=== PATIENT | female | born 1985 | race Caucasian/White ===

== ENCOUNTER 2022-11-27 22:28 | Inpatient (IN) | payer OTHER, SELFPAY ==
--- NOTE | ~2022-11-27 | CT_ITS ---
EXAMINATION: CT HEAD WITHOUT CONTRAST CT ANGIOGRAM HEAD CT ANGIOGRAM NECK CLINICAL INFORMATION: Left arm weakness. History of antiphospholipid syndrome. COMPARISON: None available. TECHNIQUE: Initial noncontrast health and safety tech imaging of the head and neck was performed. Noncontrast head CT was also performed. Test bolus sequences followed by intravenous administration 70 mL of Omnipaque 350. Helical imaging was performed in the axial plane from the aortic arch to the skull vertex. Delayed postcontrast imaging of the head was also performed. The data was processed at the product/device technologist's workstation for generation of MIP sequences. Angled MIPs and volume rendered reformatted images were also generated at an offline 3D workstation. Stenoses are assessed in accordance with NASCET criteria unless otherwise indicated. This CT examination was performed using dose optimization techniques as appropriate, variously including the following: *Automated exposure control. *Adjustment of mA and/or kV according to patient size (this includes techniques or standardized protocols for targeted exams where dose is matched to indication/reason for exam; i.e. extremities or head). *Use of iterative reconstruction technique. DLP: 1970 mGy-cm FINDINGS: CT Head: There is a region of chronic encephalomalacia involving the left insula with associated volume loss. Additional multifocal infarcts scattered throughout the bilateral frontoparietal lobes (including the right precentral gyrus) appear age indeterminant. Lacunar infarct of the left cerebellar hemisphere. There is no evidence of acute intracranial hemorrhage. A few foci of hypoattenuation in the periventricular and deep white matter. Proportional prominence of the ventricles and sulcal spaces. No evidence for obstructive hydrocephalus. No abnormal mass effect or midline shift. No extra-axial fluid collections. No pathologic intra-axial enhancement. No acute soft tissue or osseous abnormalities. Mild mucosal thickening of the paranasal sinuses. Mild rightward nasal septal deviation with spurring. The mastoid air cells and middle ear cavities are clear. CT Neck: The thyroid gland and remaining cervical soft tissues are within normal limits. No significant abnormalities of the cervical spine. CT Upper Chest: The visualized lung apices and upper mediastinum are within normal limits. Neck CTA: Aortic Arch: Normal contour and caliber. Classic 3 vessel branching pattern of the aortic arch. Great Vessel Origins: No significant stenosis of the branch origins. Right Common Carotid Artery: No focal stenosis or occlusion. Cervical Right Internal Carotid Artery: Normal opacification without focal stenosis or occlusion. Left Common Carotid Artery: No focal stenosis or occlusion. Cervical Left Internal Carotid Artery: Normal opacification without focal stenosis or occlusion. Cervical Right Vertebral Artery: Co-dominant. No focal stenosis or occlusion. Cervical Left Vertebral Artery: Co-dominant. No focal stenosis or occlusion. Brain CTA: Intracranial Internal Carotid Arteries: No focal stenosis or occlusion. Right Anterior Cerebral Artery: Normal A1 segment. Normal opacification of the distal MONICA segments. Left Anterior Cerebral Artery: Normal A1 segment. Normal opacification of the distal MONICA segments. Anterior Communicating Artery: Normal. Right Middle Cerebral Artery: Normal M1 segment of the MCA without focal stenosis or occlusion. Normal arborization of the distal segments. Left Middle Cerebral Artery: Normal M1 segment of the MCA without focal stenosis or occlusion. Normal arborization of the distal segments. Right Vertebral Artery: Normal V4 segment. Normal opacification of the proximal segments of the posterior inferior cerebellar artery. Left Vertebral Artery: Normal V4 segment. Normal opacification of the proximal segments of the posterior inferior cerebellar artery. Basilar Artery: Normal without focal stenosis or occlusion. Normal appearance of the proximal superior cerebellar arteries. Right Posterior Cerebral Artery: Normal P1 segment. Normal opacification of the distal [employer] segments. Left Posterior Cerebral Artery: Normal P1 segment. Normal opacification of the distal [employer] segments. Normal opacification of the superior sagittal, straight, transverse, and sigmoid sinuses. CT/CT head for stroke IMPRESSION: 1. Multifocal age-indeterminate infarcts scattered throughout the bilateral frontoparietal lobes. While some of these infarcts are likely chronic in nature, it be difficult to exclude acute/subacute on chronic insults. 2. There is also a region of chronic encephalomalacia involving the left insula. Lacunar infarcts of the cerebellar hemispheres. Mild underlying white matter changes. 3. No evidence of acute intracranial hemorrhage. 4. CTA of the head and neck without proximal occlusion or flow-limiting stenosis. This critical result was discussed with JERMAINE Milton at 23:09 on 11/27/2022 and it was ascertained that the content and urgency of the report was understood at the time of direct communication.
--- NOTE | ~2022-11-27 | CT_ITS ---
EXAMINATION: CT HEAD WITHOUT CONTRAST CT ANGIOGRAM HEAD CT ANGIOGRAM NECK CLINICAL INFORMATION: Left arm weakness. History of antiphospholipid syndrome. COMPARISON: None available. TECHNIQUE: Initial noncontrast tractor technician imaging of the head and neck was performed. Noncontrast head CT was also performed. Test bolus sequences followed by intravenous administration 70 mL of Omnipaque 350. Helical imaging was performed in the axial plane from the aortic arch to the skull vertex. Delayed postcontrast imaging of the head was also performed. The data was processed at the development technologist's workstation for generation of MIP sequences. Angled MIPs and volume rendered reformatted images were also generated at an offline 3D workstation. Stenoses are assessed in accordance with NASCET criteria unless otherwise indicated. This CT examination was performed using dose optimization techniques as appropriate, variously including the following: *Automated exposure control. *Adjustment of mA and/or kV according to patient size (this includes techniques or standardized protocols for targeted exams where dose is matched to indication/reason for exam; i.e. extremities or head). *Use of iterative reconstruction technique. DLP: 1970 mGy-cm FINDINGS: CT Head: There is a region of chronic encephalomalacia involving the left insula with associated volume loss. Additional multifocal infarcts scattered throughout the bilateral frontoparietal lobes (including the right precentral gyrus) appear age indeterminant. Lacunar infarct of the left cerebellar hemisphere. There is no evidence of acute intracranial hemorrhage. A few foci of hypoattenuation in the periventricular and deep white matter. Proportional prominence of the ventricles and sulcal spaces. No evidence for obstructive hydrocephalus. No abnormal mass effect or midline shift. No extra-axial fluid collections. No pathologic intra-axial enhancement. No acute soft tissue or osseous abnormalities. Mild mucosal thickening of the paranasal sinuses. Mild rightward nasal septal deviation with spurring. The mastoid air cells and middle ear cavities are clear. CT Neck: The thyroid gland and remaining cervical soft tissues are within normal limits. No significant abnormalities of the cervical spine. CT Upper Chest: The visualized lung apices and upper mediastinum are within normal limits. Neck CTA: Aortic Arch: Normal contour and caliber. Classic 3 vessel branching pattern of the aortic arch. Great Vessel Origins: No significant stenosis of the branch origins. Right Common Carotid Artery: No focal stenosis or occlusion. Cervical Right Internal Carotid Artery: Normal opacification without focal stenosis or occlusion. Left Common Carotid Artery: No focal stenosis or occlusion. Cervical Left Internal Carotid Artery: Normal opacification without focal stenosis or occlusion. Cervical Right Vertebral Artery: Co-dominant. No focal stenosis or occlusion. Cervical Left Vertebral Artery: Co-dominant. No focal stenosis or occlusion. Brain CTA: Intracranial Internal Carotid Arteries: No focal stenosis or occlusion. Right Anterior Cerebral Artery: Normal A1 segment. Normal opacification of the distal MONICA segments. Left Anterior Cerebral Artery: Normal A1 segment. Normal opacification of the distal MONICA segments. Anterior Communicating Artery: Normal. Right Middle Cerebral Artery: Normal M1 segment of the MCA without focal stenosis or occlusion. Normal arborization of the distal segments. Left Middle Cerebral Artery: Normal M1 segment of the MCA without focal stenosis or occlusion. Normal arborization of the distal segments. Right Vertebral Artery: Normal V4 segment. Normal opacification of the proximal segments of the posterior inferior cerebellar artery. Left Vertebral Artery: Normal V4 segment. Normal opacification of the proximal segments of the posterior inferior cerebellar artery. Basilar Artery: Normal without focal stenosis or occlusion. Normal appearance of the proximal superior cerebellar arteries. Right Posterior Cerebral Artery: Normal P1 segment. Normal opacification of the distal BREWMASTER segments. Left Posterior Cerebral Artery: Normal P1 segment. Normal opacification of the distal BREWMASTER segments. Normal opacification of the superior sagittal, straight, transverse, and sigmoid sinuses. CT/CT angio head neck stroke IMPRESSION: 1. Multifocal age-indeterminate infarcts scattered throughout the bilateral frontoparietal lobes. While some of these infarcts are likely chronic in nature, it be difficult to exclude acute/subacute on chronic insults. 2. There is also a region of chronic encephalomalacia involving the left insula. Lacunar infarcts of the cerebellar hemispheres. Mild underlying white matter changes. 3. No evidence of acute intracranial hemorrhage. 4. CTA of the head and neck without proximal occlusion or flow-limiting stenosis. This critical result was discussed with JERMAINE Milton at 23:09 on 11/27/2022 and it was ascertained that the content and urgency of the report was understood at the time of direct communication.
--- NOTE | ~2022-11-27 | MR_ITS ---
EXAMINATION: BRAIN MRI WITHOUT CONTRAST CLINICAL INFORMATION: Cerebrovascular accident. COMPARISON: CT angiogram of the head and neck 11/27/2022. TECHNIQUE: Multiplanar MR imaging of the brain was performed without contrast. FINDINGS: There is a tiny focus of restricted diffusion involving the cortical chacon matter of the right precentral gyrus in the hand motor association area. This finding is superimposed upon numerous chronic cortical infarcts involving both cerebral hemispheres and the cerebellum. There is a punctate chronic microhemorrhages visible within the subcortical white matter of the right frontal lobe. Intracranial vascular flow voids are grossly maintained. There is no intracranial mass effect or midline shift. Lateral and third ventricles are proportionate to the subarachnoid spaces. No hydrocephalus. Midline structures including the cervicomedullary junction are normal. No acute bone marrow signal changes. There is no mastoid or middle ear effusion. Mild paranasal sinus disease primarily affecting the ethmoid air cells. Globes and orbits are symmetric. MR/MR head/brain wo con IMPRESSION: There is a tiny acute cortical infarct involving the right precentral gyrus in the hand motor association area. This finding is superimposed upon numerous chronic cortical infarcts involving both cerebral hemispheres and the cerebellum.
[2022-11-27 22:29] VITALS: BP 171/97; PULSE 92; RESP 18; TEMP 36.8; O2SAT 99; BMI 31.7
--- NOTE | 2022-11-27 22:35 | ECG_ITS ---
Test Reason : STROKE Blood Pressure : / mmHG Vent. Rate : 087 BPM Atrial Rate : 087 BPM P-R Int : 144 ms QRS Dur : 082 ms QT Int : 368 ms P-R-T Axes : 041 019 -41 degrees QTc Int : 442 ms Normal sinus rhythm Nonspecific T wave abnormality Abnormal ECG No previous ECGs available Referred By: Josafat Florez Electronically Signed By:Yvan Lees
--- NOTE | 2022-11-27 22:44 | ED.NEUROSD ---
HPI - Neuro Symptoms/Deficit General Chief Complaint: Stroke Stated Complaint: stroke? Time Seen by Provider: 11/27/22 22:35 Source: patient and family Mode of arrival: ambulatory Limitations: no limitations History of Present Illness HPI Narrative: This is a 37-year-old female history of CKD, hyperlipidemia, antiphospholipid syndrome, history of stroke on Lovenox, hypertension presenting to the emergency department with complaints of weakness to left upper extremity and decreased sensation, symptoms started at 21:40 when patient got out of the shower and was trying to dry herself she noted she was having difficulty lifting her left arm she was not able to wrap her left arm around her to dry herself. Patient tells me she got nervous as she has a history of stroke. She tells me symptoms are still present however slightly improving. Patient has been med compliant. No concerns for . Patient denies chest pain, shortness of breath, nausea, vomiting, headache, vision changes, dizziness , changes in voice, trouble with word finding, facial asymmetry. NIHSS- 2 Related Data Allergies Allergy/AdvReac Type Severity Reaction Status Date / Time No Known Allergies Allergy Unverified 06/02/20 17:24 [No Known Allergies*] Review of Systems Review of Systems: Constitutional : No Weight loss, No Fever, No Chills, No Fatigue, No Malaise ENT/Mouth : No sore throat, No Rhinorrhea Eyes: No Eye Pain, No Swelling, No Redness Cardiovascular : No Chest Pain, No SOB, No Dyspnea on Exertion, No Orthopnea, No Edema, No Palpitations Respiratory : No Cough, No Sputum, No Wheezing Gastrointestinal : No Nausea, No Vomiting, No Diarrhea, No Constipation, No abdominal Pain, No Hematochezia, No Melena Genitourinary : No Dysuria, No Urinary Frequency, No Hematuria, Musculoskeletal : No joint pain, No Myalgias, No Joint Swelling Skin : No Skin Lesions, No rash Neuro : + Weakness, No Numbness, No Dizziness, No Headache Psych : No Anxiety/Panic, No Depression All other systems reviewed and are negative Yes all other systems are reviewed and are negative [facility] Past Medical History Attestation statement: The following information was validated with the patient. Source: old records reviewed and nursing notes reviewed Physical Exam Vital Signs: Vital Signs: Last Vital Signs Temp 98.3 F 11/27/22 22:29 Pulse 92 11/27/22 22:29 Resp 18 11/27/22 22:29 BP 171/97 H 11/27/22 22:29 Pulse Ox 99 11/27/22 22:29 O2 Del Method 11/27/22 22:29 BMI result Body Mass Index 31.7 vss Appearance: Alert.? Oriented X3.? No acute distress.? Head: Normocephalic, atraumatic, no step-offs or deformities. Normal symmetry to face Eyes: Pupils equal, round and reactive to light.? Extraocular movements intact. CVS: Normal heart rate and rhythm.? Pulses normal.? Respiratory: No respiratory distress.? Breath sounds normal.? Abdomen: Soft and nontender.? Skin: Skin warm and dry.? Normal skin color.? Normal skin turgor.? Extremities: No lower extremity edema.? No calf ttp. 5/5 strength to bilateral lower extremities. 5/5 strength to right upper extremity and 4/5 strength to left upper extremity with slight drift. Decreased sensation to left upper extremity. Normal sensation to right upper extremity. Back: No midline tenderness, no C-spine tenderness, full range of motion, no CVA tenderness bilaterally Neuro: Oriented X 3.? No motor deficit.? No sensory deficit. CN 2-12 intact . Normal rrtbud-of-owpc, ambulating with steady tandem gait normal coordination. Normal rapid alternating movements. Course Reevaluation(s) Reevaluation #1: I did speak to Neurology who recommends MRI. Nothing to be done acutely about this, patient is not a tPA candidate she is anticoagulated on Lovenox. CBC unremarkable. Chemistry with JOSSY, will hydrate. Patient's coags within normal limits. PTT 71.6. Time: 23:19 Reevaluation #2: CT and CTA discussed with Neurology, multifocal H determinant infarcts scattered throughout the bilateral frontal parietal lobe. Some infarcts are likely chronic however hard to exclude acute/subacute insults. Region of chronic encephalomalacia. Lacunar infarcts within cerebellar hemispheres. No evidence of acute intracranial hemorrhage. CT of the head and neck without proximal occlusion or flow-limiting stenosis. Discussed case with hospitalist who will admit patient for further evaluation and treatment. Time: 23:38 Medications Administered Discontinued Medications Generic Name Dose Route Start Last Admin Trade Name Freq PRN Reason Stop Dose Admin Iohexol 100 ml 11/27/22 22:57 11/27/22 22:57 Iohexol 350 Mg/Ml 100 Ml Infus..Btl IV 11/27/22 22:58 70 ml ONCE ONE Administration Medical Decision Making Medical Decision Making [facility] Narrative: 37-year-old female presents for evaluation of left arm weakness and decreased sensation to left arm since 21:40. History of CVA anticoagulated on Lovenox. Followed by [facility]. Physical exam significant for 5/5 strength to bilateral lower extremities. 5/5 strength to right upper extremity and 4/5 strength to left upper extremity with slight drift. Decreased sensation to left upper extremity. Normal sensation to right upper extremity. Facial symmetry noted. Regular rate and rhythm. Lungs clear. Abdomen soft nontender nondistended. NIHSS- 2 Concerns for possible stroke, TIA. Will rule out intracranial hemorrhage. Unlikely posterior stroke. Cerebellar function intact. Will rule out electrolyte abnormalities. Plan at this time stroke protocol. Differential Diagnosis Differential Diagnoses: The differential diagnosis associated with the presentation includes Concerns for possible stroke, TIA. Will rule out intracranial hemorrhage. Unlikely posterior stroke. Cerebellar function intact. Will rule out electrolyte abnormalities. Admission/Observation Consideration of admission/observation: Escalation of care including admission/observation considered Consult Healthcare Provider Management of the patient was discussed with: Hospitalist and Marketing Analytics Specialist (Dr. Thomas ) Lab Data [facility] Lab Attestation statement: I reviewed the patient's lab results. 11/27/22 22:49 11/27/22 22:49 Labs: Lab Results 11/27/22 11/27/22 11/27/22 Range/Units 22:42 22:43 22:49 WBC 8.6 (4.8-10.8) X10*3/uL RBC 4.63 (4.20-5.50) X10*6/uL Hgb 13.4 (12.0-16.0) g/dl Hct 39.4 (37.0-47.0) % MCV 85.1 (80.0-98.0) fL MCH 28.9 (27.0-33.0) pg MCHC 34.0 (31.0-35.0) g/dl RDW 12.0 (11.0-16.0) % Plt Count 298 (160-400) X10*3/uL MPV 10.7 (9.4-12.3) fL Immature Gran % (Auto) 0.2 (0.0-0.4) % Neut % (Auto) 44.5 L (45-73) % Lymph % (Auto) 44.1 H (20-40) % [place] % (Auto) 8.6 (2-11) % Eos % (Auto) 1.9 (0-4) % Baso % (Auto) 0.7 (0-2) % Lymph # (Auto) 3.8 (1.2-4.9) X10*3/uL [place] # (Auto) 0.7 (0.1-1.2) X10*3/uL Eos # (Auto) 0.2 (0.0-0.4) X10*3/uL Baso # (Auto) 0.1 (0.0-0.2) X10*3/uL Abs Immat Gran (auto) 0.02 (0.00-0.03) X10*3/uL Absolute Neuts (auto) 3.8 (2.0-8.3) x10*3/uL Absolute Nucleated RBC 0.000 (0.0-0.012) X10*3/uL Nucleated RBC % (auto) 0.0 (0.0-0.2) /100WBC PT (10.0-13.1) SEC Whole Blood PT 12.1 (11.1-13.5) sec INR (0.9-1.1) Whole Blood INR 1.0 (0.9-1.1) APTT (26.0-36.4) SEC Sodium (135-145) mmol/L Potassium (3.3-5.1) mmol/L Chloride (96-108) mmol/L Carbon Dioxide (22-29) mmol/L Anion Gap (12-20) BUN (9-16) mg/dL Creatinine (0.5-1.4) mg/dL Estim Creat Clear Calc Estimated GFR POC Glucose 136 H (60-115) mg/dL Random Glucose (60-115) mg/dL Calcium (8.4-10.2) mg/dL Total Creatine Kinase (26-140) U/L Troponin I High Sens (<3.5-17.0) ng/L 11/27/22 11/27/22 11/27/22 Range/Units 22:49 22:49 22:49 WBC (4.8-10.8) X10*3/uL RBC (4.20-5.50) X10*6/uL Hgb (12.0-16.0) g/dl Hct (37.0-47.0) % MCV (80.0-98.0) fL MCH (27.0-33.0) pg MCHC (31.0-35.0) g/dl RDW (11.0-16.0) % Plt Count (160-400) X10*3/uL MPV (9.4-12.3) fL Immature Gran % (Auto) (0.0-0.4) % Neut % (Auto) (45-73) % Lymph % (Auto) (20-40) % [place] % (Auto) (2-11) % Eos % (Auto) (0-4) % Baso % (Auto) (0-2) % Lymph # (Auto) (1.2-4.9) X10*3/uL [place] # (Auto) (0.1-1.2) X10*3/uL Eos # (Auto) (0.0-0.4) X10*3/uL Baso # (Auto) (0.0-0.2) X10*3/uL Abs Immat Gran (auto) (0.00-0.03) X10*3/uL Absolute Neuts (auto) (2.0-8.3) x10*3/uL Absolute Nucleated RBC (0.0-0.012) X10*3/uL Nucleated RBC % (auto) (0.0-0.2) /100WBC PT 10.6 (10.0-13.1) SEC Whole Blood PT (11.1-13.5) sec INR 0.9 (0.9-1.1) Whole Blood INR (0.9-1.1) APTT 71.6 H* (26.0-36.4) SEC Sodium 141 (135-145) mmol/L Potassium 3.7 (3.3-5.1) mmol/L Chloride 104 (96-108) mmol/L Carbon Dioxide 26 (22-29) mmol/L Anion Gap 15 (12-20) BUN 19 H (9-16) mg/dL Creatinine 1.50 H (0.5-1.4) mg/dL Estim Creat Clear Calc 54.3 Estimated GFR 39 POC Glucose (60-115) mg/dL Random Glucose 111 (60-115) mg/dL Calcium 9.7 (8.4-10.2) mg/dL Total Creatine Kinase 38 (26-140) U/L Troponin I High Sens < 3.5 (<3.5-17.0) ng/L Independent Interpretation I performed an independent interpretation of an: EKG (Ventricular rate of 87, WA normal, QRS normal, QT/QTC normal. EKG with normal sinus rhythm no ST elevations or inversions concerning for ischemia.) and CT Scan Radiology Impression Discussion of test interpretation with radiology: I have reviewed the radiologist's reading. Core Measures AMI core measures followed: Yes Measure exclusions: not indicated Critical Care Time Critical Care Time Critical Care Time: Yes Total Critical Care Time: 40 Attestation: I attest to this time spent taking care of the patient, obtaining history, physical, reviewing labs, imaging, speaking to my attending, speaking to specialist. Discharge Plan Discharge Clinical Impression: Cerebrovascular accident Patient Disposition: Admitted As Inpatient
[2022-11-27 22:47] LABS: Glucose, Whole Blood 136 mg/dL (60-115)
[2022-11-27 22:49] LABS: Prothrombin Time Whole Bld POC 12.1 sec (11.1-13.5)
[2022-11-27 22:55] LABS: MANUAL DIFF FLAG NO
[2022-11-27 22:56] LABS: Basophils Absolute Auto 0.1 X10*3/uL (0.0-0.2); Basophils Percent Auto 0.7 % (0-2); Eosinophils Absolute Auto 0.2 X10*3/uL (0.0-0.4); Eosinophils Percent Auto 1.9 % (0-4); Hematocrit 39.4 % (37.0-47.0); Hemoglobin 13.4 g/dl (12.0-16.0); Imm Gran Abs Auto 0.02 X10*3/uL (0.00-0.03); Imm Gran Pct Auto 0.2 % (0.0-0.4); Lymphocytes Absolute Auto 3.8 X10*3/uL (1.2-4.9); Lymphocytes Percent Auto 44.1 % (20-40); Mean Corpuscular Hemoglobin 28.9 pg (27.0-33.0); Mean Corpuscular Volume 85.1 fL (80.0-98.0); Mean Platelet Volume 10.7 fL (9.4-12.3); Monocytes Absolute Auto 0.7 X10*3/uL (0.1-1.2); Monocytes Percent Auto 8.6 % (2-11); Neutrophils Absolute Auto 3.8 x10*3/uL (2.0-8.3); Neutrophils Percent Auto 44.5 % (45-73); Platelet Count 298 X10*3/uL (160-400); Red Blood Count 4.63 X10*6/uL (4.20-5.50); White Blood Count 8.6 X10*3/uL (4.8-10.8)
[2022-11-27] MEDS: iohexoL 350 MG/ML 100 ML INFUS..BTL IV (22:57)
[2022-11-27 23:01] LABS: INTERNATIONAL NORM RATIO 0.9 (0.9-1.1); Prothrombin Time 10.6 SEC (10.0-13.1)
[2022-11-27 23:06] LABS: Partial Thromboplastin Time 71.6 SEC (26.0-36.4)
[2022-11-27 23:07] LABS: Stroke Lab Use COMPLETE
--- NOTE | 2022-11-27 23:09 | PC.NURSE ---
pt arrives to ED reports possible stroke (hx of stroke last May). 18g IV placed in RAC, labs drawn as well. pt back from CT, Ekg being performed at this time
[2022-11-27 23:12] LABS: Anion Gap 15 (12-20); Blood Urea Nitrogen 19 mg/dL (9-16); Calcium 9.7 mg/dL (8.4-10.2); Carbon Dioxide 26 mmol/L (22-29); Chloride 104 mmol/L (96-108); Creatinine Clr Calc Pharmacy 54.3; Estimated Glomerular Filt Rate 39; Glucose Random 111 mg/dL (60-115); Potassium 3.7 mmol/L (3.3-5.1); Sodium 141 mmol/L (135-145)
[2022-11-27 23:19] LABS: Troponin-I High Sensitivity < 3.5 ng/L (<3.5-17.0)
--- NOTE | 2022-11-27 23:36 | P.HPHOSP_ITS ---
History of Present Illness Date of Service: 11/27/22 Chief Complaint: Left upper extremity weakness This is a 37-year-old female with pertinent history of essential hypertension, mood disorder, history of CVA, CKD, antiphospholipid syndrome presents to the emergency department for evaluation of left upper extremity weakness. Patient is on therapeutic Lovenox for antiphospholipid syndrome. She last had an acute CVA in May 2022. Patient had residual extremity weakness, abnormal gait and some cognitive deficits due to her previous CVA. Patient states her extremity weakness was improving with occupational therapy. Around 21:30 when patient got out of the shower she noticed sudden onset of left upper extremity weakness. Patient was unable to lift her left arm and unable to make a fist. She was not able to lift her towel to dry herself. Patient is compliant with her medications. She had a DAVID in October including bubble study. She denies speech deficits, facial droop, tongue bite, urinary or bowel incontinence, fever, chills, chest discomfort, palpitations, shortness of breath, abdominal pain, changes in urinary or bowel habits In the emergency department, Neurology was consulted who requested admission and MRI in a.m. Review of Systems Constitutional: Constitutional: Reports no additional constitutional complaints Cardiovascular: Cardiovascular: Reports no additional cardiovascular complaints Respiratory: Respiratory: Reports no additional respiratory complaints Gastrointestinal: Gastrointestinal: Reports no additional gastrointestinal complaints Genitourinary: Genitourinary: Reports no additional female genitourinary complaints Neurologic: Reports focal weakness [facility] Medical History Antiphospholipid antibody syndrome Cerebrovascular accident CKD (chronic kidney disease) Hypertension Functional capacity: independent ambulation Pertinent family history: No family history of CAD Social History Alcohol intake: never Patient Tobacco Use Status: Never used Tobacco Smoked in Last 30 Days: No Use of substances other than those prescribed or required for medical reasons: No Advance Directives: No Advance Directives Information Provided: No Nutrition Risks: No Nutritional Risk Patient : No Meds Allergies Allergy/AdvReac Type Severity Reaction Status Date / Time No Known Allergies Allergy Unverified 11/27/22 23:49 [No Known Allergies*] Active Medications: Current Medications Acetaminophen (Acetaminophen 325 Mg Tablet) 650 mg PO Q6H PRN PRN Reason: Pain, Mild (Pain Scale 1-3) Acetaminophen (Acetaminophen Supp 650 Mg Supp.Rect) 650 mg CO Q6H PRN PRN Reason: Pain, Mild (Pain Scale 1-3) Sodium Chloride (Ns) 1,000 mls @ 999 mls/hr IV .Q1H1M [facility] Stop: 11/28/22 00:30 Sodium Chloride (Ns) 1,000 mls @ 999 mls/hr IV .Q1H1M [facility] Stop: 11/28/22 00:30 Melatonin (Melatonin 3 Mg Tablet) 6 mg PO BEDTIME PRN PRN Reason: Insomnia Ondansetron HCl (Ondansetron Hcl 4 Mg/2 Ml Vial) 4 mg IVPUSH Q8H PRN PRN Reason: Nausea and Vomiting Pharmacy Consult (Consult Rx Perform Med Rec) 1 each MISCELLANE ONCE PRN PRN Reason: Consult order Home Medications Medication Instructions Recorded Confirmed Last Taken Type amlodipine 10 mg tablet 1 tab PO DAILY 11/27/22 11/27/22 11/27/22 History aspirin 81 mg tablet,delayed 1 tab PO DAILY 11/27/22 11/27/22 11/27/22 History release atorvastatin 20 mg tablet 1 tab PO QPM 11/27/22 11/27/22 11/27/22 History bupropion HCl 150 mg 24 hr tablet, 1 tab PO DAILY 11/27/22 11/27/22 11/27/22 History extended release enoxaparin 120 mg/0.8 mL 1 syringe subcut DAILY 11/27/22 11/27/22 11/27/22 History subcutaneous syringe metoprolol succinate 100 mg 1 tab PO DAILY 11/27/22 11/27/22 11/27/22 History tablet,extended release 24 hr potassium citrate 10 mEq (1,080 20 meq PO DAILY 11/27/22 11/27/22 11/27/22 History mg) tablet,extended release Physical Exam Vital Signs and Narrative: Vital Signs: Last Vital Signs Temp 98.3 F 11/27/22 22:29 Pulse 92 11/27/22 22:29 Resp 18 11/27/22 22:29 BP 171/97 H 11/27/22 22:29 Pulse Ox 99 11/27/22 22:29 O2 Del Method 11/27/22 22:29 BMI result Body Mass Index 31.7 Middle-aged female lying in bed in no distress Neck supple, no JVD Regular rate and rhythm, S1-S2 heard Regular breath sounds bilaterally, no wheezing or crackles appreciated Abdomen soft nontender, no guarding, no rigidity Patient is awake, alert and oriented to self, place, time and person ; no facial droop, no tongue or uvula deviation, strength 5/5 in bilateral lower extremity and right upper extremity, 4/5 in left upper extremity, no nystagmus, Psych: Normal mood No pedal edema Results Labs 11/27/22 22:49 11/27/22 22:49 Labs: Laboratory Results - last 24 hr 11/27/22 11/27/22 11/27/22 22:42 22:43 22:49 MCV 85.1 MCH 28.9 MCHC 34.0 RDW 12.0 Plt Count 298 MPV 10.7 Immature Gran % (Auto) 0.2 Neut % (Auto) 44.5 L Lymph % (Auto) 44.1 H [place] % (Auto) 8.6 Eos % (Auto) 1.9 Baso % (Auto) 0.7 Lymph # (Auto) 3.8 [place] # (Auto) 0.7 Eos # (Auto) 0.2 Baso # (Auto) 0.1 Abs Immat Gran (auto) 0.02 Absolute Neuts (auto) 3.8 Absolute Nucleated RBC 0.000 Nucleated RBC % (auto) 0.0 PT Whole Blood PT 12.1 INR Whole Blood INR 1.0 APTT Anion Gap Estim Creat Clear Calc Estimated GFR POC Glucose 136 H Random Glucose Calcium Total Creatine Kinase Troponin I High Sens 11/27/22 11/27/22 11/27/22 22:49 22:49 22:49 MCV MCH MCHC RDW Plt Count MPV Immature Gran % (Auto) Neut % (Auto) Lymph % (Auto) [place] % (Auto) Eos % (Auto) Baso % (Auto) Lymph # (Auto) [place] # (Auto) Eos # (Auto) Baso # (Auto) Abs Immat Gran (auto) Absolute Neuts (auto) Absolute Nucleated RBC Nucleated RBC % (auto) PT 10.6 Whole Blood PT INR 0.9 Whole Blood INR APTT 71.6 H* Anion Gap 15 Estim Creat Clear Calc 54.3 Estimated GFR 39 POC Glucose Random Glucose 111 Calcium 9.7 Total Creatine Kinase 38 Troponin I High Sens < 3.5 Imaging Radiologist's Impressions: Impressions Head CT 11/27/22 22:49 IMPRESSION: 1. Multifocal age-indeterminate infarcts scattered throughout the bilateral frontoparietal lobes. While some of these infarcts are likely chronic in nature, it be difficult to exclude acute/subacute on chronic insults. 2. There is also a region of chronic encephalomalacia involving the left insula. Lacunar infarcts of the cerebellar hemispheres. Mild underlying white matter changes. 3. No evidence of acute intracranial hemorrhage. 4. CTA of the head and neck without proximal occlusion or flow-limiting stenosis. This critical result was discussed with JERMAINE Milton at 23:09 on 11/27/2022 and it was ascertained that the content and urgency of the report was understood at the time of direct communication. Head/Neck CTA 11/27/22 22:54 IMPRESSION: 1. Multifocal age-indeterminate infarcts scattered throughout the bilateral frontoparietal lobes. While some of these infarcts are likely chronic in nature, it be difficult to exclude acute/subacute on chronic insults. 2. There is also a region of chronic encephalomalacia involving the left insula. Lacunar infarcts of the cerebellar hemispheres. Mild underlying white matter changes. 3. No evidence of acute intracranial hemorrhage. 4. CTA of the head and neck without proximal occlusion or flow-limiting stenosis. This critical result was discussed with JERMAINE Milton at 23:09 on 11/27/2022 and it was ascertained that the content and urgency of the report was understood at the time of direct communication. Assessment and Plan (1) Cerebrovascular accident: Status: Acute Plan This is a 37-year-old female with pertinent history of essential hypertension, mood disorder, history of CVA, CKD, antiphospholipid syndrome presents to the emergency department for evaluation of left upper extremity weakness. #. Left upper extremity weakness: Patient with history of previous CVA and antiphospholipid syndrome. Imaging with multifocal age indeterminate infarcts. Will obtain MRI in a.m.. Consulted Neurology, appreciate assistance. Is on aspirin and high-intensity statin. Obtaining A1c and lipid panel. Patient had a DAVID with bubble study in October 2022, obtain records. Consulting OT/PT #. Antiphospholipid antibody syndrome: On subacute Lovenox #. CKD: Unknown baseline. Monitor creatinine urine output. Continue potassium citrate #. Essential hypertension: Hold antihypertensives to allow for permissive hypertension #. Mood disorder: Continue Wellbutrin Med rec pending DVT prophylaxis: Therapeutic Lovenox Full code Cardiac diet after patient passes bedside swallow Admit as inpatient and will require two night minimum hospital stay for evaluation and management of possible acute CVA Time Spent With Patient Time: Total time managing care of this patient today ____ minutes. Quality Stroke Does the patient have a stroke diagnosis?: Yes Reason for No Anti-thrombotic by Day Two: N/A - Med Ordered VTE Prior VTE?: No VTE Risk Level:: Medical - moderate - high VTE Device Contraindication: Treatment Not Indicated VTE Drug Contraindication: N/A - Med Ordered
[2022-11-27] MEDS: 0.9 % Sodium Chloride 1,000 ML 999 ML IV ×2 (23:46→23:47)
[2022-11-27 23:48] VITALS: BP 140/87; PULSE 77; RESP 12; O2SAT 98
--- NOTE | 2022-11-28 00:14 | PC.NURSE ---
pt resting on stretcher comfortably with no apparent distress, denies pain. respirations even and unlabored, skin pwd
[2022-11-28 00:57] LABS: COVID-19 Test Negative (Negative); IDNOW Serial# 6674DD1D
[2022-11-28 05:07] LABS: Estimated Average Glucose 105 mg/dL; Hemoglobin A1c % 5.3 %
--- NOTE | 2022-11-28 05:35 | PC.NURSE ---
MRI form completed with pt and faxed to the MRI dept.
--- NOTE | 2022-11-28 05:37 | PC.NURSE ---
Ambulates to the bathroom independently, with supervision, and steady gait.
[2022-11-28 06:20] LABS: MANUAL DIFF FLAG NO
[2022-11-28 06:28] LABS: Basophils Absolute Auto 0.1 X10*3/uL (0.0-0.2); Basophils Percent Auto 0.6 % (0-2); Eosinophils Absolute Auto 0.1 X10*3/uL (0.0-0.4); Eosinophils Percent Auto 1.8 % (0-4); Hematocrit 34.3 % (37.0-47.0); Hemoglobin 11.9 g/dl (12.0-16.0); Imm Gran Abs Auto 0.02 X10*3/uL (0.00-0.03); Imm Gran Pct Auto 0.3 % (0.0-0.4); Lymphocytes Percent Auto 50.3 % (20-40); Mean Corpuscular HGB Conc 34.7 g/dl (31.0-35.0); Mean Corpuscular Hemoglobin 29.9 pg (27.0-33.0); Mean Corpuscular Volume 86.2 fL (80.0-98.0); Monocytes Absolute Auto 0.7 X10*3/uL (0.1-1.2); Monocytes Percent Auto 8.9 % (2-11); Neutrophils Absolute Auto 3.1 x10*3/uL (2.0-8.3); Neutrophils Percent Auto 38.1 % (45-73); Platelet Count 231 X10*3/uL (160-400); Red Blood Count 3.98 X10*6/uL (4.20-5.50)
[2022-11-28 06:42] LABS: Anion Gap 12 (12-20); Blood Urea Nitrogen 14 mg/dL (9-16); Calcium 8.6 mg/dL (8.4-10.2); Carbon Dioxide 22 mmol/L (22-29); Chloride 110 mmol/L (96-108); Creatinine Clr Calc Pharmacy 70.2; Estimated Glomerular Filt Rate 53; Glucose Random 94 mg/dL (60-115); Potassium 3.9 mmol/L (3.3-5.1); Sodium 140 mmol/L (135-145)
[2022-11-28 06:46] LABS: Cholesterol 136 mg/dL; HDL Cholesterol 32 mg/dL; LDL Cholesterol Calculated 78 mg/dl; Triglycerides 133 mg/dL
[2022-11-28 07:13] VITALS: BP 129/77; PULSE 79; RESP 15; TEMP 36.6; O2SAT 97
--- NOTE | 2022-11-28 08:11 | PHA.MEDREC ---
Pharmacy Consult ? Medication Reconciliation Pharmacy has completed the medication reconciliation. Spoke to patient to confirm med rec done by nursing overnight. Patient is very good historian. Confirmed that patient is not taking control (it shows on claim history but she cannot take it due to stroke risk). Also confirmed that patient is taking potassium citrate although it's not showing on claim history.
[2022-11-28] MEDS: amLODIPine Besylate 10 MG TABLET PO (08:24)
[2022-11-28] MEDS: Metoprolol Succinate ER 100 MG TAB.ER.24H PO (08:24)
[2022-11-28] MEDS: Aspirin Enteric Coated 81 MG TABLET.DR PO (08:24)
[2022-11-28] MEDS: buPROPion HCl XL 150 MG TAB.ER.24H PO (08:24)
[2022-11-28 08:25] VITALS: BP 160/89; PULSE 99; RESP 17
[2022-11-28 09:07] LABS: Hematocrit 35.6 % (37.0-47.0); Hemoglobin 12.1 g/dl (12.0-16.0); Mean Corpuscular Hemoglobin 29.4 pg (27.0-33.0); Mean Corpuscular Volume 86.6 fL (80.0-98.0); Mean Platelet Volume 10.4 fL (9.4-12.3); Platelet Count 226 X10*3/uL (160-400); Red Blood Count 4.11 X10*6/uL (4.20-5.50); Red Cell Distribution Width 12.1 % (11.0-16.0); White Blood Count 7.7 X10*3/uL (4.8-10.8)
[2022-11-28 09:16] LABS: INTERNATIONAL NORM RATIO 0.9 (0.9-1.1); Prothrombin Time 10.5 SEC (10.0-13.1)
[2022-11-28 09:19] LABS: Partial Thromboplastin Time 48.3 SEC (26.0-36.4)
[2022-11-28] MEDS: Enoxaparin Sodium 120 MG/0.8 ML SYRINGE SUBCUT (09:43)
--- NOTE | 2022-11-28 09:47 | PC.NURSE ---
pt is alert and oriented, skin pwd, respirations even and unlabored. pt denies pain at this time, no facial droop at this time, no arm drift visible pt reports that her left hand has improved since her arrival but states that she needs to concentrate to make the hand move/function. ns on the monitor
--- NOTE | 2022-11-28 11:36 | PC.NURSE ---
pt off to mri
--- NOTE | 2022-11-28 12:10 | PM.NEUROCN ---
History of Present Illness Data of Consult Service Date: 11/28/22 Primary Care Provider: Mau Paz MD [facility] Reason for consult: Stroke This is a [id number]-handed female with h/o hypertension, mood disorder, stroke in the past from antiphospholipid syndrome, CKD, presented to the emergency department with left upper extremity weakness.? Patient is on therapeutic Lovenox started in the last 3 weeks for antiphospholipid syndrome.? She had an acute CVA in May 2022 with left upper extremity weakness from which she was recovering, But still had residual extremity weakness, abnormal gait and some cognitive deficits due to her previous CVA.? Patient states her extremity weakness was improving with occupational therapy.? Around 21:30 when patient got out of the shower she noticed sudden onset of left upper extremity weakness.? Patient was unable to lift her left arm and unable to make a fist.? She was not able to lift her towel to dry herself.? Patient is compliant with her medications.? She had a DAVID in October including bubble study.? She denies speech deficits, facial droopPeriod and this time she feels that her strength has returned to its baseline. Review of Systems Review of Systems: Constitutional : No Weight loss, No Fever, No Chills, No Fatigue, No Malaise ENT/Mouth : No sore throat, No Rhinorrhea Eyes: No Eye Pain, No Swelling, No Redness Cardiovascular : No Chest Pain, No SOB, No Dyspnea on Exertion, No Orthopnea, No Edema, No Palpitations Respiratory : No Cough, No Sputum, No Wheezing Gastrointestinal : No Nausea, No Vomiting, No Diarrhea, No Constipation, No abdominal Pain, No Hematochezia, No Melena Genitourinary : No Dysuria, No Urinary Frequency, No Hematuria, Musculoskeletal : No joint pain, No Myalgias, No Joint Swelling Skin : No Skin Lesions, No rash Neuro : + Weakness, No Numbness, No Dizziness, No Headache Psych : No Anxiety/Panic, No Depression All other systems reviewed and are negative Yes all other systems are reviewed and are negative Constitutional: Constitutional: Reports no additional constitutional complaints Cardiovascular: Cardiovascular: Reports no additional cardiovascular complaints Respiratory: Respiratory: Reports no additional respiratory complaints Gastrointestinal: Gastrointestinal: Reports no additional gastrointestinal complaints Neurologic: Reports focal weakness PMFSH Past Medical History Medical History Antiphospholipid antibody syndrome Cerebrovascular accident CKD (chronic kidney disease) Hypertension Functional capacity: independent ambulation Family History Pertinent family history: No family history of CAD Social History Social History Alcohol intake: never Patient Tobacco Use Status: Never used Tobacco Smoked in Last 30 Days: No Use of substances other than those prescribed or required for medical reasons: No Advance Directives: No Advance Directives Information Provided: No Nutrition Risks: No Nutritional Risk Patient : No Meds Allergies Allergy/AdvReac Type Severity Reaction Status Date / Time No Known Allergies Allergy Unverified 11/27/22 23:49 [No Known Allergies*] Active Medications: Current Medications Acetaminophen (Acetaminophen 325 Mg Tablet) 650 mg PO Q6H PRN PRN Reason: Pain, Mild (Pain Scale 1-3) Acetaminophen (Acetaminophen Supp 650 Mg Supp.Rect) 650 mg DE Q6H PRN PRN Reason: Pain, Mild (Pain Scale 1-3) Amlodipine Besylate (Amlodipine Besylate 10 Mg Tablet) 10 mg PO DAILY [facility]; Protocol Last Admin: 11/28/22 08:24 Dose: 10 mg Aspirin (Aspirin Enteric Coated 81 Mg Tablet.Dr) 81 mg PO DAILY [facility] Last Admin: 11/28/22 08:24 Dose: 81 mg Atorvastatin Calcium (Atorvastatin Calcium 20 Mg Tablet) 20 mg PO BEDTIME YANNICK Bupropion HCl (Bupropion Hcl Xl 150 Mg Tab.Er.24h) 150 mg PO DAILY [facility] Last Admin: 11/28/22 08:24 Dose: 150 mg Enoxaparin Sodium (Enoxaparin Sodium 120 Mg/0.8 Ml Syringe) 120 mg SUBCUT DAILY [facility] Last Admin: 11/28/22 09:43 Dose: 120 mg Melatonin (Melatonin 3 Mg Tablet) 6 mg PO BEDTIME PRN PRN Reason: Insomnia Metoprolol Succinate (Metoprolol Succinate Er 100 Mg Tab.Er.24h) 100 mg PO DAILY [facility]; Protocol Last Admin: 11/28/22 08:24 Dose: 100 mg Non-Formulary Medication (Potassium Citrate) 20 meq PO DAILY [facility] Ondansetron HCl (Ondansetron Hcl 4 Mg/2 Ml Vial) 4 mg IVPUSH Q8H PRN PRN Reason: Nausea and Vomiting Pharmacy Consult (Consult Rx Perform Med Rec) 1 each MISCELLANE ONCE PRN PRN Reason: Consult order Home Medications Medication Instructions Recorded Confirmed Last Taken Type amlodipine 10 mg tablet 1 tab PO DAILY 11/27/22 11/27/22 11/27/22 History aspirin 81 mg tablet,delayed 1 tab PO DAILY 11/27/22 11/27/22 11/27/22 History release atorvastatin 20 mg tablet 1 tab PO BEDTIME 11/27/22 11/28/22 11/27/22 History bupropion HCl 150 mg 24 hr tablet, 1 tab PO DAILY 11/27/22 11/27/22 11/27/22 History extended release enoxaparin 120 mg/0.8 mL 1 syringe subcut DAILY 11/27/22 11/27/22 11/27/22 History subcutaneous syringe metoprolol succinate 100 mg 1 tab PO DAILY 11/27/22 11/27/22 11/27/22 History tablet,extended release 24 hr potassium citrate 10 mEq (1,080 20 meq PO DAILY 11/27/22 11/27/22 11/27/22 History mg) tablet,extended release Physical Exam Vital Signs: Vital Signs: Last Vital Signs Temp 97.9 F 11/28/22 07:13 Pulse 99 11/28/22 08:25 Resp 17 11/28/22 08:25 BP 160/89 H 11/28/22 08:25 Pulse Ox 97 11/28/22 07:13 O2 Del Method 11/28/22 07:13 BMI result Body Mass Index 31.7 Neuro: Other: Normal cranial nerves with no facial weakness. No visual field cuts. Tongue protrudes in the midline. Speech is normal. She has a pronation drift of the left upper extremity. Left raftsman 5 minus/5. Left deltoid 5 minus/5 otherwise all muscles are normal. Slight slowing in finger tapping on the left and minimal dysmetria on [id number] test. Slight decrease in tactile sensation in the left hand. DTRs are 2+ plantar response are flexor Results Labs 11/28/22 09:01 11/28/22 05:52 Labs: Short CBC 11/27/22 11/28/22 11/28/22 Range/Units 22:49 05:52 09:01 WBC 8.6 8.0 7.7 (4.8-10.8) X10*3/uL Hgb 13.4 11.9 L 12.1 (12.0-16.0) g/dl Hct 39.4 34.3 L 35.6 L (37.0-47.0) % Plt Count 298 231 226 (160-400) X10*3/uL BMP 11/27/22 11/28/22 22:49 05:52 Sodium 141 140 Potassium 3.7 3.9 Chloride 104 110 H Carbon Dioxide 26 22 BUN 19 H 14 Creatinine 1.50 H 1.16 Calcium 9.7 8.6 D Cardiac Enzymes 11/27/22 Range/Units 22:49 Total Creatine Kinase 38 (26-140) U/L Assessment and Plan (1) Cerebrovascular accident: Status: Acute She appears to have had a minor stroke in the right hemisphere again with previous strokes in the right parietal and left frontal and parietal areas with 1 symptomatic stroke in May of 2022. Recent echocardiogram with bubble study was unremarkable. Her MRI shows multiple extensive old strokes in both hemispheres and a new acute punctate stroke in the right parietal area with a diffusion abnormality. Her CTA shows no occlusive disease. Most likely etiology is related to her antiphospholipid antibody syndrome. She has been on Lovenox for the last 3 weeks. I have raised the possibility that this new stroke may be indicative of a treatment failure and that she needs to talk to her treating neurologist at [facility] to see if he would consider switching her to either Eliquis or Coumadin. Plan She can be discharged to followup with her neurologist at [facility] with specific question of whether the Lovenox is sufficient for her or she needs an oral anticoagulants. Time Spent With Patient Time: Total time managing care of this patient today ____ minutes. Procedures Date of Service Date of Service: 11/28/22
--- NOTE | 2022-11-28 14:37 | PM.DS ---
DS: Providers Provider Date of Service: 11/28/22 Date of admission: 11/27/22 23:43 Date of discharge: 11/28/22 Primary care physician: Mau Paz MD Consults: 11/27/22 23:32 Consult to Neurology Routine Consulting Provider: [facility] Reason for consultation: CVA DS: Diagnosis Discharge Diagnosis (1) Cerebrovascular accident: Status: Acute DS: Summary Hospital Course Hospital Course: 37-year-old female with pertinent history of essential hypertension, mood disorder, history of CVA, CKD, antiphospholipid syndrome presents to the emergency department for evaluation of left upper extremity weakness.? Patient is on therapeutic Lovenox for antiphospholipid syndrome.? She last had an acute CVA in May 2022.? Patient had residual extremity weakness, abnormal gait and some cognitive deficits due to her previous CVA.? Patient states her extremity weakness was improving with occupational therapy.? Around 21:30 when patient got out of the shower she noticed sudden onset of left upper extremity weakness.? Patient was unable to lift her left arm and unable to make a fist.? She was not able to lift her towel to dry herself.? Patient is compliant with her medications.? She had a DAVID in October including bubble study.? She denies speech deficits, facial droop, tongue bite, urinary or bowel incontinence, fever, chills, chest discomfort, palpitations, shortness of breath, abdominal pain, changes in urinary or bowel habits Hospital course Admitted to hospital MRI taken. Seen by Neurology who felt there was a new event (right hemispheric) which may indicate a failure to Lovenox. At this point time she will be discharged to follow-up with a neurologist at [facility] and the decision can be made going forward Time Spent with Patient Time attestation: Total time managing care of this patient today ____ minutes. Discharge coordination time: Greater than 30 minutes Quality: Safe Use of Opioids Does Pt have an Active Cancer Diagnosis on the Problem List?: No Quality: Stroke Does the patient have a stroke diagnosis?: Yes Reason for No Anti-thrombotic at DC: N/A - Med Ordered Reason for No Anticoagulant at DC: N/A - Med Ordered Reason Not Initiating IV-Tpa: Drug treatment not indicated Reason for No Anti-thrombotic by Day Two: Drug treatment not indicated Reason for No Statin at DC: N/A - Med Ordered Physical Exam Vital Signs: Vital Signs: Last Vital Signs Temp 97.9 F 11/28/22 07:13 Pulse 99 11/28/22 08:25 Resp 17 11/28/22 08:25 BP 160/89 H 11/28/22 08:25 Pulse Ox 97 11/28/22 07:13 O2 Del Method 11/28/22 07:13 BMI result Body Mass Index 31.7 Const: Other: Awake alert oriented x3 no acute distress Resp: Other: Clear to auscultation bilaterally no rales rhonchi wheezes Cardio: Other: No S4; positive S1-S2; no S3 murmurs rubs or gallops Neuro: Other: Cranial nerves 2-12 grossly intact as tested. No obvious visual field cuts. Speech is normal. Motor 5/5 right extremities; 4.5/5 left upper extremity; sensation intact. Cognition appropriate Extrem: Other: No edema bilaterally DS: Data Data Completed and Pending Labs on day of discharge: Laboratory Results - last 24 hr 11/27/22 11/27/22 11/27/22 22:42 22:43 22:49 WBC 8.6 RBC 4.63 Hgb 13.4 Hct 39.4 MCV 85.1 MCH 28.9 MCHC 34.0 RDW 12.0 Plt Count 298 MPV 10.7 Immature Gran % (Auto) 0.2 Neut % (Auto) 44.5 L Lymph % (Auto) 44.1 H [place] % (Auto) 8.6 Eos % (Auto) 1.9 Baso % (Auto) 0.7 Lymph # (Auto) 3.8 [place] # (Auto) 0.7 Eos # (Auto) 0.2 Baso # (Auto) 0.1 Abs Immat Gran (auto) 0.02 Absolute Neuts (auto) 3.8 Absolute Nucleated RBC 0.000 Nucleated RBC % (auto) 0.0 PT Whole Blood PT 12.1 INR Whole Blood INR 1.0 APTT Sodium Potassium Chloride Carbon Dioxide Anion Gap BUN Creatinine Estim Creat Clear Calc Estimated GFR POC Glucose 136 H Random Glucose Estimat Average Glucose Hemoglobin A1c % Calcium Total Creatine Kinase Troponin I High Sens Triglycerides Cholesterol LDL Cholesterol, Calc HDL Cholesterol COVID-19 (RADHA) COVID-19 Clin Com 11/27/22 11/27/22 11/27/22 22:49 22:49 22:49 WBC RBC Hgb Hct MCV MCH MCHC RDW Plt Count MPV Immature Gran % (Auto) Neut % (Auto) Lymph % (Auto) [place] % (Auto) Eos % (Auto) Baso % (Auto) Lymph # (Auto) [place] # (Auto) Eos # (Auto) Baso # (Auto) Abs Immat Gran (auto) Absolute Neuts (auto) Absolute Nucleated RBC Nucleated RBC % (auto) PT 10.6 Whole Blood PT INR 0.9 Whole Blood INR APTT 71.6 H* Sodium 141 Potassium 3.7 Chloride 104 Carbon Dioxide 26 Anion Gap 15 BUN 19 H Creatinine 1.50 H Estim Creat Clear Calc 54.3 Estimated GFR 39 POC Glucose Random Glucose 111 Estimat Average Glucose Hemoglobin A1c % Calcium 9.7 Total Creatine Kinase 38 Troponin I High Sens < 3.5 Triglycerides Cholesterol LDL Cholesterol, Calc HDL Cholesterol COVID-19 (RDAHA) COVID-19 [employer] Com 11/27/22 11/28/22 11/28/22 22:49 00:32 05:52 WBC 8.0 RBC 3.98 L Hgb 11.9 L Hct 34.3 L MCV 86.2 MCH 29.9 MCHC 34.7 RDW 12.0 Plt Count 231 MPV 11.0 Immature Gran % (Auto) 0.3 Neut % (Auto) 38.1 L Lymph % (Auto) 50.3 H [place] % (Auto) 8.9 Eos % (Auto) 1.8 Baso % (Auto) 0.6 Lymph # (Auto) 4.0 [place] # (Auto) 0.7 Eos # (Auto) 0.1 Baso # (Auto) 0.1 Abs Immat Gran (auto) 0.02 Absolute Neuts (auto) 3.1 Absolute Nucleated RBC 0.000 Nucleated RBC % (auto) 0.0 PT Whole Blood PT INR Whole Blood INR APTT Sodium Potassium Chloride Carbon Dioxide Anion Gap BUN Creatinine Estim Creat Clear Calc Estimated GFR POC Glucose Random Glucose Estimat Average Glucose 105 Hemoglobin A1c % 5.3 Calcium Total Creatine Kinase Troponin I High Sens Triglycerides Cholesterol LDL Cholesterol, Calc HDL Cholesterol COVID-19 (RADHA) Negative COVID-19 [employer] Com See Note 11/28/22 11/28/22 11/28/22 05:52 05:52 09:01 WBC 7.7 RBC 4.11 L Hgb 12.1 Hct 35.6 L MCV 86.6 MCH 29.4 MCHC 34.0 RDW 12.1 Plt Count 226 MPV 10.4 Immature Gran % (Auto) Neut % (Auto) Lymph % (Auto) [place] % (Auto) Eos % (Auto) Baso % (Auto) Lymph # (Auto) [place] # (Auto) Eos # (Auto) Baso # (Auto) Abs Immat Gran (auto) Absolute Neuts (auto) Absolute Nucleated RBC 0.000 Nucleated RBC % (auto) 0.0 PT Whole Blood PT INR Whole Blood INR APTT Sodium 140 Potassium 3.9 Chloride 110 H Carbon Dioxide 22 Anion Gap 12 BUN 14 Creatinine 1.16 Estim Creat Clear Calc 70.2 Estimated GFR 53 POC Glucose Random Glucose 94 Estimat Average Glucose Hemoglobin A1c % Calcium 8.6 D Total Creatine Kinase Troponin I High Sens Triglycerides 133 Cholesterol 136 LDL Cholesterol, Calc 78 HDL Cholesterol 32 COVID-19 (RADHA) [employer] 11/28/22 09:01 WBC RBC Hgb Hct MCV MCH MCHC RDW Plt Count MPV Immature Gran % (Auto) Neut % (Auto) Lymph % (Auto) [place] % (Auto) Eos % (Auto) Baso % (Auto) Lymph # (Auto) [place] # (Auto) Eos # (Auto) Baso # (Auto) Abs Immat Gran (auto) Absolute Neuts (auto) Absolute Nucleated RBC Nucleated RBC % (auto) PT 10.5 Whole Blood PT INR 0.9 Whole Blood INR APTT 48.3 H D Sodium Potassium Chloride Carbon Dioxide Anion Gap BUN Creatinine Estim Creat Clear Calc Estimated GFR POC Glucose Random Glucose Estimat Average Glucose Hemoglobin A1c % Calcium Total Creatine Kinase Troponin I High Sens Triglycerides Cholesterol LDL Cholesterol, Calc HDL Cholesterol COVID-19 (RADHA) COVID-19 [employer] [facility] Discharge Plan Discharge Anticipated Discharge Date/Time: 11/28/22 14:34 Patient Disposition: Home, Self-Care Discharge Diagnosis: Right hemispheric CVA Referrals: Mau Paz MD [Primary Care Provider] - 1 Week Discharge Medications: Continued atorvastatin 20 mg tablet 1 tab PO BEDTIME metoprolol succinate 100 mg tablet extended release 24 hr 1 tab PO DAILY aspirin 81 mg tablet,delayed release (DR/EC) 1 tab PO DAILY amlodipine 10 mg tablet 1 tab PO DAILY potassium citrate 10 mEq (1,080 mg) Tablet Extended Release 20 meq PO DAILY enoxaparin 120 mg/0.8 mL syringe 1 syringe subcut DAILY bupropion HCl 150 mg tablet extended release 24 hr 1 tab PO DAILY Discharge Orders: Discharge Order (Routine); Ordered 11/28/22 Ordered By: Jeremy Louis Diet: Advance to usual diet Activity on Discharge: As tolerated Stand Alone Forms: Patient Portal Discharge page Care Plan Goals: Continue all current medicines. Follow-up with your neurologist at [facility]. Health Concerns: Neuro questions whether this is a failure to Lovenox; discussed with your neurologist at [facility] Plan of Treatment: As ordered Assessment: See discharge summary
--- NOTE | 2022-11-28 14:45 | MHC.CM.PN ---
Patient's has discharge order before being seen by case management. No services ordered at this time.
--- NOTE | 2022-11-28 14:50 | MHC.STROKE ---
I MET WITH THE PATIENT AND HER , WE DISCUSSED HER DIAGNOSIS, HER CURRENT MEDICATIONS, RISK FACTORS, CURRENT NEUROLOGIST DR LONGO AND HOW SHE NEEDS TO FOLLOW UP WITH HIM. DR. MILLIGAN, DR GARCIA AND DISCUSSED THE CASE. PATIENT WILL REMAIN ON LOVENOX, HIGH STROKE RISK. WE DISCUSSED THE MRI FINDINGS AND LOCATION OF THIS NEW STROKE, SHE HAS BEEN SEEN BY THERAPY AND RECOMMENDATIONS HAVE BEEN MADE. I ANSWERED ALL OF THEIR QUESTIONS. WE REVIEWED THE STROKE EDUCATION BOOKLET AND ENCOURAGED HER TO CALL IF SHE HAS ANY QUESTIONS. 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 SHE WILL BE DISCHARGED HOME TODAY.
--- NOTE | 2022-11-28 15:31 | MHC.SL.SWA ---
Addendum entered and electronically signed by Halima Echols MA, [facility]-CONCRETE PIPE MAKING MACHINE OPERATOR 11/28/22 15:41: D.S. Original Note: Dysphasia Diet Status: No change, discharge from speech therapy Liquid Consistency and Strategies for Safe Swallow: Liquid Intake Recommendation: Thin Liquid Intake Strategies: Unrestricted Solid Food Consistency: Dietary Recommendations: Regular Oral Medication Intake: Whole with Liquid Please contact the pharmacy regarding appropriate crushable or liquid drug formulations that are available whenever modified delivery is recommended. Compensatory Strategies and Precautions to be Taken for Safe Swallow: Sitting Upright (90 deg) Supervision While Eating and Drinking for Safe Swallow: None Needed Swallowing Recommended Treatments: None Recommendation for Speech: NA:Typical Evaluation Comment: Recommend patient continue with regular solids, thin liquids, pills whole w/ liquid. Patient to be discharged from CONCRETE PIPE MAKING MACHINE OPERATOR tx at this time. RN, RD, and MD updated via [employer]. [employer] Developer Clinican/Clinical Fellow: Yes: Cony Jenkins M.A., -CONCRETE PIPE MAKING MACHINE OPERATOR Supervisory Statement: I have reviewed and agree with the student/clinical fellow's documentation: Speech Language Pathologist:
== END 2022-11-28 16:13 | disposition home or self-care (01) | DRG 45 ==
LOC: HO.ED 23:49 → HO.EDOVER 11-28 00:04
PROVIDERS: Physician Assistant; Admitting Provider Student in an Organized Health Care Education/Training Program; Emergency Provider Emergency Medicine; PCP Internal Medicine; Visit Provider Hospitalist
DX: I63.89 Other cerebral infarction (principal); D68.61 Antiphospholipid syndrome; G83.22 Monoplegia of upper limb affecting left dominant side; E78.5 Hyperlipidemia, unspecified; R29.702 NIHSS score 2; I12.9 Hypertensive chronic kidney disease with stage 1 through stage 4 chronic kidney disease, or unspecified chronic kidney disease; F39 Unspecified mood [affective] disorder; N18.9 Chronic kidney disease, unspecified; I69.398 Other sequelae of cerebral infarction; I69.319 Unspecified symptoms and signs involving cognitive functions following cerebral infarction; I69.315 Cognitive social or emotional deficit following cerebral infarction; R26.89 Other abnormalities of gait and mobility; Z20.822 Contact with and (suspected) exposure to COVID-19; Z79.82 Long term (current) use of aspirin; Z79.899 Other long term (current) drug therapy
CPT/HCPCS: 36415; 70450; 70496; 70498; 70551; 80048; 80061; 82550; 82947; 83036; 84484; 85025; 85027; 85610; 85730; 87635; 92610; 93005; 97110; 97161; 97166; 99285; J1650; Q9967